=== PATIENT | female | born 1975 | race Caucasian/White ===

== ENCOUNTER 2022-02-02 19:29 | Emergency (ER) | payer BC ==
[2022-02-02] MEDS ORDERED: Ondansetron 4 MG Tab.DIS PO ONE (19:43)
[2022-02-02] MEDS ORDERED: HYDROmorphone 1 MG/ML Syringe IM ONE (19:43)
== END 2022-02-02 20:45 | disposition home or self-care (01) ==
LOC: JP.ED 19:29
DX: M24.412 Recurrent dislocation, left shoulder (principal); Z88.8 Allergy status to other drugs, medicaments and biological substances
CPT/HCPCS: 23650; 73020-26-LT; 73020-LT; 73030-26-LT; 73030-LT; 96372; 99282; 99283-25; J1170; Q0162